=== PATIENT | male | born 1995 ===

== ENCOUNTER 2021-02-26 17:58 | Emergency (ER) | payer MEDICAID ==
[~2021-02-26] VITALS: Ht 167.6 cm; Wt 77.0 kg
[2021-02-26] MEDS ORDERED: ketorolac trometh. 30mg/ml inj. IM ONE (18:45)
[2021-02-26 18:57] VITALS: BP 141/90
== END 2021-02-26 18:58 | disposition home or self-care (01) ==
LOC: ER 18:00
DX: M67.471 Ganglion, right ankle and foot (principal); M79.89 Other specified soft tissue disorders
CPT/HCPCS: 73630; 96372; 99283; J1885